=== PATIENT | female | born 1995 | race Caucasian/White ===

== ENCOUNTER 2018-03-24 08:48 | Emergency (ER) | payer OTHER ==
[2018-03-24] MEDS: ACETAMINOPHEN 325 MG TAB PO (09:43)
[2018-03-24] MEDS: LIDOCAINE 1% (MDV) 10 ML INJ INFIL (09:52)
[2018-03-24] MEDS: LIDOCAINE 1% (MPF) 5 ML VIAL INFIL (10:04)
== END 2018-03-24 10:50 | disposition home or self-care (01) ==
LOC: FTE 08:48
DX: L60.0 Ingrowing nail (principal)
CPT/HCPCS: 11765; 99283-25

== ENCOUNTER 2018-03-26 09:37 | Emergency (ER) | payer SELFPAY, OTHER | END 2018-03-26 10:09 | disposition left against medical advice (07) | LOC: FTE 09:37 | DX: Z53.21 Procedure and treatment not carried out due to patient leaving prior to being seen by health care provider (principal) ==

== ENCOUNTER 2018-10-04 08:25 | Emergency (ER) | payer OTHER ==
[2018-10-04] MEDS: ACETAMINOPHEN 325 MG TAB PO (09:38)
[2018-10-04] MEDS: LIDOCAINE 1% (MDV) 20 ML INJ SC ×2 (09:39→09:40)
== END 2018-10-04 10:43 | disposition home or self-care (01) ==
LOC: FTE 08:25
DX: L60.0 Ingrowing nail (principal)
CPT/HCPCS: 11765; 99282-25